=== PATIENT | female | born 1980 | race Asian ===

== ENCOUNTER 2018-09-08 10:51 | Day surgery (SDC) | payer OTHER ==
[2018-09-06 17:40] VITALS: BMI 30.2
[2018-09-08] MEDS ORDERED: PROPOFOL 20 ML ONE (12:55)
[2018-09-08] MEDS ORDERED: MIDAZOLAM HCL 2 MG/2 ML SINGLE DOSE VIAL ONE (12:55)
--- NOTE | 2018-09-08 13:06 | HP ---
Admitting History and Physical - Admission History of Present Illness: 38 yo with hx/o infertility and endometrial polyp for surgical removal. History Source: Patient Limitations to Obtaining History: No Limitations - Past Medical History Cardiovascular: No: HTN Pulmonary: No: Asthma Gastrointestinal: No: GERD Reproductive: Yes: Ectopic , Fibroids, Polycystic Ovary Syndrome ...LMP: 06/24/18 Heme/Onc: No: Anemia - Past Surgical History Additional Past Surgical History: RLQ surgery - unsure what surgery was for (hx/o ectopic?) - Smoking History Smoking history: Never smoked - Alcohol/Substance Use Hx Alcohol Use: No History of Substance Use: reports: None - Social History History of Recent Travel: No Home Medications - Allergies Allergies/Adverse Reactions: Allergies Allergy/AdvReac Type Severity Reaction Status Date / Time No Known Allergies Allergy Verified 09/08/18 11:39 - Home Medications Home Medications: Ambulatory Orders Ascorbic Acid [Vitamin C] 500 mg PO DAILY 09/08/18 Family Disease History - Family Disease History Family History: Denies Review of Systems - Review of Systems Constitutional: reports: No Symptoms Cardiovascular: reports: No Symptoms Respiratory: reports: No Symptoms Gastrointestinal: reports: No Symptoms Genitourinary: reports: No Symptoms Musculoskeletal: reports: No Symptoms Integumentary: reports: No Symptoms Hematology/Lymphatic: reports: No Symptoms Psychiatric: reports: No Symptoms Physical Examination Vital Signs: Vital Signs Temperature 98.1 F 09/08/18 11:36 Pulse Rate 77 09/08/18 11:36 Respiratory Rate 20 09/08/18 11:36 Blood Pressure 141/88 09/08/18 11:36 O2 Sat by Pulse Oximetry (%) 98 09/08/18 11:35 Constitutional: Yes: Well Nourished, No Distress, Calm Cardiovascular: Yes: Regular Rate and Rhythm Respiratory: Yes: Regular, CTA Bilaterally Gastrointestinal: Yes: Normal Bowel Sounds, Soft Edema: No ...Motor Strength: WNL Psychiatric: Yes: Alert, Oriented Assessment/Plan 38 yo with endometrial polyp desires removal 1. Consetns reviewed and signed 2. Preop labs reviewe 3. SCDs for DVT PPx 4. Will proceed to OR
[2018-09-08] MEDS ORDERED: DEXAMETHASONE SOD PHOSPHATE 4 MG/1 ML VIAL ONE (13:28)
--- NOTE | 2018-09-08 13:59 | OP ---
Operative Note - Note: Operative Date: 09/08/18 Pre-Operative Diagnosis: endometrial polyp Operation: hysteroscopy, dilation and curettage, polypectomy Findings: endometrial polyp, bilateral ostia visualized, normal appearing endometrium Post-Operative Diagnosis: Same as Pre-op Surgeon: Mirella Correa Anesthesiologist/AVIATION MEDICINE SPECIALIST: Chung Freedman Anesthesia: General Estimated Blood Loss (mls): 1 Fluid Volume Replaced (mls): 800 Operative Report Dictated: Yes
[2018-09-08] MEDS ORDERED: KETOROLAC TROMETHAMINE 30 MG/1 ML VIAL ONE (14:01)
[2018-09-08] MEDS ORDERED: ACETAMINOPHEN 325 MG TABLET (FP) PO PRN (14:02)
[2018-09-08] MEDS ORDERED: IBUPROFEN 400 MG TABLET (FP) PO PRN (14:02)
[2018-09-08] MEDS ORDERED: oxyCODONE HCL 5 MG TABLET PO PRN (14:02)
[2018-09-08] MEDS ORDERED: ONDANSETRON 4 MG/2 ML VIAL IVPUSH PRN (14:03)
[2018-09-08] MEDS ORDERED: KETOROLAC TROMETHAMINE 30 MG/1 ML VIAL IVPUSH ONE (14:12)
[2018-09-08] MEDS ORDERED: LACTATED RINGERS SOLUTION 1,000 ML IV SCH (14:15)
--- NOTE | 2018-09-08 14:30 | OP ---
DATE OF OPERATION: 09/08/2018 SURGEON: Mirella Correa MD ANESTHESIOLOGIST: Chung Freedman MD ANESTHESIA: General. ESTIMATED BLOOD LOSS: 1 mL. FLUIDS GIVEN: 800. FLUID DEFICIT: 0. SURGERY: OPERATION: Hysteroscopy, dilation and curettage, polypectomy. FINDINGS: Endometrial polyp, bilateral ostia visualized, normal appearing endometrium. INDICATIONS: Patient is a 38-year-old with history of an endometrial polyp desiring removal. She was counseled regarding risks, benefits, alternatives, and complications of procedure including infection, bleeding, damage to surrounding organs such as bowel, bladder, uterine perforation, uterine synechiae formation. She expressed understanding and was brought to the operating room. DESCRIPTION OF PROCEDURE: When anesthesia was found to be adequate, patient was prepped and draped in a normal sterile fashion, placed in dorsal lithotomy position using Jett stirrups. A weighted speculum was placed in the patients vagina. The anterior lip of the cervix was grasped using an Allis clamp, and the cervix was dilated to a size 17 Thai. The Symphion hysteroscope was placed into the endometrial cavity. Bilateral ostia were visualized, normal-appearing endometrium was noted, and an endometrial polyp was noted. The Symphion resector was placed and removal of polyp was noted. All instruments were removed from the patients vagina. Gentle sharp curetting was performed. All instruments were removed from the patients vagina. Patient tolerated the procedure well. Estimated blood loss was less than 1 mL. Patient was awoken from anesthesia, brought to recovery room in stable condition. Lui [id number] MTDD
[2018-09-08 15:17] VITALS: TEMP 97.9
[2018-09-08 17:31] VITALS: BP 116/79; PULSE 82
--- NOTE | 2018-09-13 15:59 | PATH ---
Surgical Pathology Report Patient Name: OMAR MCMAHON [facility]. Rec. #: [id number] /Age/Gender: 1980 (Age: 38) / F Account: [id number] Location: [facility] SURGICAL Taken: 09/08/2018 Received: 09/10/2018 Reported: 09/13/2018 Physicians: Mirella Correa Specimen(s) Received ENDOMETRIAL POLYP Clinical History Endometrial polyp Final Diagnosis ENDOMETRIAL POLYP, EXCISION: FRAGMENTS OF ENDOMETRIAL POLYP. SEPARATE PROLIFERATIVE ENDOMETRIUM WITH FOCAL PAPILLARY SYNCYTIAL CHANGE. SEPARATE ENDOCERVICAL TISSUE WITH ACUTE INFLAMMATION. Electronically Signed Jhoana Calloway M.D. Gross Description Received in formalin labeled "endometrial polyp," is a 1.5 x 1.5 x 0.3 cm aggregate of manuel soft tissue fragments. The formalin is filtered and the specimen is entirely submitted in one cassette. /09/10/2018 saudi09/10/2018
== END 2018-09-08 16:00 | disposition home or self-care (01) ==
LOC: JASU-SURG 10:51
PROVIDERS: ATTEND Obstetrics & Gynecology
PROC: 0UJD8ZZ Inspection of Uterus and Cervix, Via Natural or Artificial Opening Endoscopic (ICD-10-PCS; 2018-09-08)
PROC: 0UB97ZX Excision of Uterus, Via Natural or Artificial Opening, Diagnostic (ICD-10-PCS; principal; 2018-09-08 13:00)
PROC: 0UDB7ZX Extraction of Endometrium, Via Natural or Artificial Opening, Diagnostic (ICD-10-PCS; 2018-09-08 13:00)
DX: N84.0 Polyp of corpus uteri (principal)
CPT/HCPCS: 36415; 84703; 86850; 86900; 86901; 88305-TC; 94760